=== PATIENT | female | born 1960 | race Caucasian/White ===

== ENCOUNTER 2017-08-15 12:31 | Outpatient (CLI) | payer OTHER | END 2017-08-15 12:32 | disposition home or self-care (01) | LOC: BICMAMMO 12:31 | PROVIDERS: ATTEND Radiology Diagnostic Radiology | DX: Z12.31 Encounter for screening mammogram for malignant neoplasm of breast (principal); Z80.3 Family history of malignant neoplasm of breast | CPT/HCPCS: G0279 ==

== ENCOUNTER 2019-01-22 19:30 | Outpatient (CLI) | payer OTHER | END 2019-01-22 19:31 | disposition home or self-care (01) | LOC: SLEEPLAB 19:30 | PROVIDERS: ATTEND Family Medicine | DX: G47.33 Obstructive sleep apnea (adult) (pediatric) (principal); R06.83 Snoring; R09.89 Other specified symptoms and signs involving the circulatory and respiratory systems; R53.83 Other fatigue; R40.0 Somnolence; E66.09 Other obesity due to excess calories; Z68.42 Body mass index [BMI] 45.0-49.9, adult | CPT/HCPCS: 95811 ==

== ENCOUNTER 2019-02-24 16:04 | Emergency (ER) | payer OTHER ==
[2019-02-24] MEDS ORDERED: diphenhydrAMINE 50 MG CAP ONE (17:55)
[2019-02-24] MEDS ORDERED: hydrOXYzine 25 MG TAB ONE (18:09)
[2019-02-24 18:27] LABS: #Lymphocytes 1.3 thou/uL (1.20-3.40); #Monocytes 0.4 thou/uL (0.11-0.59); #Neutrophils 6.4 thou/uL (1.40-6.50); %Basophils 0.1 % (0.0-1.0); %Eosinophils 0.2 % (0.0-10.0); %Lymphocytes 15.9 % (21.0-51.0); %Monocytes 5.2 % (0.0-10.0); %Neutrophils 78.6 % (42.0-75.0); Hemoglobin 13.6 g/dL (12.0-16.0); Mean Corpuscular HGB CONC 33.9 g/dL (32.0-36.0); Mean Corpuscular Hemoglobin 31.2 pg (27.0-31.0); Mean Corpuscular Volume 91.9 fL (78.0-98.0); Mean Platelet Volume 7.3 fL (7.4-10.4); Platelet Count 242 thou/uL (130-400); RBC Distribution Width 13.1 % (11.5-14.5); Red Blood Cell (RBC) Count 4.37 mill/uL (4.20-5.40); White Blood Cell (WBC) Count 8.2 thou/uL (4.8-10.8)
[2019-02-24] MEDS ORDERED: Acetaminophen 325 MG TAB ONE (18:47)
[2019-02-24 18:51] LABS: ALT (SGPT) 21 U/L (8-55); AST (SGOT) 16 U/L (5-34); Albumin 4.5 g/dL (3.5-5.0); Alkaline Phosphatase 99 U/L (40-150); Anion Gap 12 mmol/L (10-20); BUN (Urea Nitrogen) 24 mg/dL (9.8-20.1); Bilirubin, Total 1.5 mg/dL (0.2-1.2); Calc. Creatinine Clearance 0 mL/min (70-130); Calcium 9.6 mg/dL (7.8-10.44); Carbon Dioxide 24 mmol/L (22-29); Chloride 104 mmol/L (98-107); Estimated GFR-MDRD 49; Globulin 2.8 g/dL (2.4-3.5); Glucose 122 mg/dL (70-105); Potassium 3.8 mmol/L (3.5-5.1); Protein, Total 7.3 g/dL (6.0-8.3); Sodium 136 mmol/L (136-145)
[2019-02-24 19:06] LABS: Bilirubin Negative (Negative); Blood, Urine Negative (Negative); Clarity TURBID (Clear); Glucose, Urine (Dipstick) Negative (Negative); Leukocyte Negative (Negative); Nitrite Negative (Negative); Protein, Urine (Dipstick) Negative (Neg-Trace); Specific Gravity, Urine 1.029 (1.002-1.036)
[2019-02-24] MEDS ORDERED: Famotidine 20 MG TAB ONE (20:23)
== END 2019-02-24 21:07 | disposition home or self-care (01) ==
LOC: ERS 16:04
DX: L50.9 Urticaria, unspecified (principal); I25.10 Atherosclerotic heart disease of native coronary artery without angina pectoris; E78.5 Hyperlipidemia, unspecified; I10 Essential (primary) hypertension; J45.909 Unspecified asthma, uncomplicated; F41.9 Anxiety disorder, unspecified; Z79.899 Other long term (current) drug therapy
CPT/HCPCS: 36415; 80053; 81003; 85025; 99283; Q0153

== ENCOUNTER 2019-07-09 14:18 | Outpatient (CLI) | payer OTHER ==
--- NOTE | 2019-07-09 15:02 | MMO ---
Bilateral MAMMO Bilat Screen [facility]. CLINICAL HISTORY: Patient is 58 years old and is seen for screening. The patient has the following family history of breast cancer: mother, in 1998 and great aunt, maternal. The patient has no personal history of cancer. The patient has a history of left Ultrasound Guided Core Biopsy - benign. VIEWS: The views performed were: bilateral craniocaudal with tomosynthesis and bilateral mediolateral oblique with tomosynthesis. FILMS COMPARED: The present examination has been compared to prior imaging studies performed at [facility] on 07/13/2016, 07/30/2017 and 08/15/2017. This study has been interpreted with the assistance of computer-aided detection. MAMMOGRAM FINDINGS: There are scattered fibroglandular densities. There are no suspicious masses, suspicious calcifications, or new areas of architectural distortion. IMPRESSION: THERE IS NO MAMMOGRAPHIC EVIDENCE OF MALIGNANCY. A ROUTINE FOLLOW-UP MAMMOGRAM IN 1 YEAR IS RECOMMENDED. THE RESULTS OF THIS EXAM WERE SENT TO THE PATIENT. ACR BI-RADS Category 1 - Negative MAMMOGRAPHY NOTE: 1. A negative mammogram report should not delay a biopsy if a dominant of clinically suspicious mass is present. 2. Approximately 10% to 15% of breast cancers are not detected by mammography. 3. Adenosis and dense breasts may obscure an underlying neoplasm. Reported by: KELVIN COMER MD Electonically Signed: [id number]
== END 2019-07-09 14:19 | disposition home or self-care (01) ==
LOC: BICMAMMO 14:18
PROVIDERS: ATTEND Family Medicine
DX: Z12.31 Encounter for screening mammogram for malignant neoplasm of breast (principal); Z91.89 Other specified personal risk factors, not elsewhere classified; Z80.3 Family history of malignant neoplasm of breast
CPT/HCPCS: 77063; 77067

== ENCOUNTER 2019-07-28 07:36 | Day surgery (SDC) | payer OTHER ==
[2019-07-27 11:38] VITALS: BMI 44.9
[2019-07-28] MEDS ORDERED: PROPOFOL 200 MG/20 ML VIAL ONE (09:43)
--- NOTE | 2019-07-28 12:22 | OP ---
DATE OF PROCEDURE: 07/28/2019 PREPROCEDURE DIAGNOSIS: Prior history of large sessile serrated adenoma of the transverse colon in 2016. POSTPROCEDURE DIAGNOSES: 1. Tortuous sigmoid colon. 2. Otherwise normal colonoscopy. 3. Scar in the transverse colon with no residual polyp. RECOMMENDATIONS: Repeat colonoscopy in 5 years. ANESTHESIA: TIVA. PROCEDURE IN DETAIL: After the patient was informed of the risks, benefits, and possible complications of endoscopy including perforation, bleeding, reaction to medication, and aspiration, informed consent was obtained. The patient was brought to endoscopy suite, where she was sedated in gradual fashion. Once she was comfortable, a rectal exam was performed, which was normal. The endoscope was inserted into the anal canal through the colon to cecum, which was identified by the ileocecal valve and appendiceal orifice. The prep was good. The scope was slowly removed with good visualization of the mucosa. There were no mass lesions or AV malformations seen. There was a scar in the transverse colon, consistent with previous polypectomy. No residual polyp material was seen. The remainder of the colon was evaluated and found to be normal except for mild diverticulosis in the sigmoid colon. Retroflexed views in the rectum were normal. The scope was then returned to forward position and removed. The patient tolerated the procedure well. There were no complications. Job ID: [id number]
== END 2019-07-28 10:40 | disposition home or self-care (01) ==
LOC: SDC 07:36
PROVIDERS: ATTEND Internal Medicine Gastroenterology
PROC: 0DJD8ZZ Inspection of Lower Intestinal Tract, Via Natural or Artificial Opening Endoscopic (ICD-10-PCS; principal; 2019-07-28)
DX: Z12.11 Encounter for screening for malignant neoplasm of colon (principal); Q43.8 Other specified congenital malformations of intestine; E78.5 Hyperlipidemia, unspecified; E03.9 Hypothyroidism, unspecified; F32.9 Major depressive disorder, single episode, unspecified; Z88.2 Allergy status to sulfonamides; Z86.010 Personal history of colon polyps; Z79.899 Other long term (current) drug therapy
CPT/HCPCS: J2704

== ENCOUNTER 2019-07-30 00:37 | Emergency (ER) | payer OTHER ==
[2019-07-30] MEDS ORDERED: Lidocaine 1% w/Epinephrine 1:100K 20 ML VIAL ONE (01:29)
[2019-07-30] MEDS ORDERED: Adacel (T-DAP) 0.5 ML SYRINGE ONE (01:49)
== END 2019-07-30 02:11 | disposition home or self-care (01) ==
LOC: ERS 00:37
DX: S01.01XA Laceration without foreign body of scalp, initial encounter (principal); I25.10 Atherosclerotic heart disease of native coronary artery without angina pectoris; E78.5 Hyperlipidemia, unspecified; I10 Essential (primary) hypertension; J45.909 Unspecified asthma, uncomplicated; F41.9 Anxiety disorder, unspecified; Z79.899 Other long term (current) drug therapy; Z79.82 Long term (current) use of aspirin; Z23 Encounter for immunization; W17.89XA Other fall from one level to another, initial encounter
CPT/HCPCS: 12002; 90471; 90715

== ENCOUNTER 2019-08-27 14:20 | Outpatient (CLI) | payer OTHER | END 2019-08-27 14:21 | disposition home or self-care (01) | LOC: DTY/OP 14:20 | PROVIDERS: ATTEND Surgery | DX: E66.01 Morbid (severe) obesity due to excess calories (principal) | CPT/HCPCS: 97802 ==

== ENCOUNTER 2019-09-28 10:58 | Outpatient (CLI) | payer OTHER | END 2019-09-28 10:59 | disposition home or self-care (01) | LOC: DTY/OP 10:58 | PROVIDERS: ATTEND Surgery | DX: E66.01 Morbid (severe) obesity due to excess calories (principal) | CPT/HCPCS: 97802 ==

== ENCOUNTER 2019-10-28 10:04 | Outpatient (CLI) | payer OTHER | END 2019-10-28 10:05 | disposition home or self-care (01) | LOC: DTY/OP 10:04 | PROVIDERS: ATTEND Surgery | DX: E66.01 Morbid (severe) obesity due to excess calories (principal) | CPT/HCPCS: 97802 ==

== ENCOUNTER 2019-11-25 10:09 | Outpatient (CLI) | payer OTHER | END 2019-11-25 10:10 | disposition home or self-care (01) | LOC: DTY/OP 10:09 | PROVIDERS: ATTEND Surgery | DX: E66.01 Morbid (severe) obesity due to excess calories (principal) | CPT/HCPCS: 97802 ==

== ENCOUNTER 2020-07-08 06:44 | Outpatient (CLI) | payer OTHER ==
--- NOTE | 2020-07-08 11:44 | RAD ---
EXAM: Two views chest PROVIDED CLINICAL HISTORY: Preoperative evaluation COMPARISON: 05/31/2008 FINDINGS: Cardiac silhouette and pulmonary vasculature are within normal limits. The lungs are clear. The osse ous structures have a normal appearance. IMPRESSION: No acute cardiopulmonary process.
[2020-07-08 12:46] LABS: #Eosinphils 0.1 10x3/uL (0.0-0.5); #Monocytes 0.4 10x3/uL (0.0-1.1); #Neutrophils 3.9 10x3/uL (1.5-8.4); %Basophils 0.3 % (0.0-2.0); %Eosinophils 1.1 % (0.0-6.0); %Lymphocytes 30.8 % (18.0-47.0); %Monocytes 6.8 % (0.0-10.0); %Neutrophils 60.7 % (40.0-75.0); Hemoglobin 13.4 g/dL (12.0-16.0); Mean Corpuscular HGB CONC 33.7 G/DL (32.0-36.0); Mean Corpuscular Hemoglobin 29.8 PG (27.0-33.0); Mean Corpuscular Volume 88.4 fl (80.0-100.0); Mean Platelet Volume 10.1 fl (7.4-10.4); Platelet Count 254 10x3/uL (130-400); RBC Distribution Width 12.9 % (11.5-14.5); White Blood Cell (WBC) Count 6.4 10x3/uL (4.5-11.0)
[2020-07-08 13:06] LABS: ALT (SGPT) 45 U/L (8-55); AST (SGOT) 30 U/L (5-34); Albumin 4.6 g/dL (3.5-5.0); Alkaline Phosphatase 90 U/L (40-110); Anion Gap 20 mmol/L (10-20); BUN (Urea Nitrogen) 23 mg/dL (9.8-20.1); Bilirubin, Total 0.7 mg/dL (0.2-1.2); Calc. Creatinine Clearance 0 mL/min (70-130); Calcium 9.8 mg/dL (7.8-10.44); Carbon Dioxide 20 mmol/L (22-29); Chloride 105 mmol/L (98-107); Estimated GFR-MDRD 67; Globulin 2.7 g/dL (2.4-3.5); Glucose 88 mg/dL (70-105); Potassium 4.4 mmol/L (3.5-5.1); Protein, Total 7.3 g/dL (6.0-8.3); Sodium 141 mmol/L (136-145)
[2020-07-08 16:43] LABS: Hemoglobin A1c 4.7 % (4.0-6.0)
[2020-07-08 17:49] LABS: SARS-CoV-2 MS2 Positive; SARS-CoV-2 N Gene Negative; SARS-CoV-2 S Gene Negative; SARS-CoV-2 by NAA Not Detected (NotDetected); SARS-CoV-2 orf1ab Negative
== END 2020-07-08 06:45 | disposition home or self-care (01) ==
LOC: LABBT 06:44
PROVIDERS: ATTEND Surgery
DX: Z01.818 Encounter for other preprocedural examination (principal); Z20.828 Contact with and (suspected) exposure to other viral communicable diseases; E66.01 Morbid (severe) obesity due to excess calories
CPT/HCPCS: 71046; 80053; 83036; 85025; 87635; 93005; 93010; U0003

== ENCOUNTER 2020-07-08 11:00 | Inpatient (IN) | payer OTHER ==
[2020-07-08 13:21] VITALS: BMI 47.5
[2020-07-13] MEDS ORDERED: Heparin 5,000 UNITS/ML VIAL ONE (06:16)
[2020-07-13] MEDS ORDERED: Fentanyl 100 MCG/2 ML VIAL ONE ×2 (06:24→09:17)
[2020-07-13] MEDS ORDERED: Midazolam HCl 2 mg/2 ml Vial ONE (06:24)
[2020-07-13] MEDS ORDERED: Lidocaine 1% w/Epinephrine 1:100K 20 ML VIAL ONE (07:52)
[2020-07-13] MEDS ORDERED: Bupivacaine 0.25% HCL 30 ML VIAL ONE (07:52)
[2020-07-13] MEDS ORDERED: Ketorolac Tromethamine 30 MG/ML VIAL ONE (08:23)
[2020-07-13] MEDS ORDERED: PROPOFOL 200 MG/20 ML VIAL ONE (08:23)
[2020-07-13] MEDS ORDERED: Glycopyrrolate 0.2 MG/ML 5 ML SYRINGE ONE (08:23)
[2020-07-13] MEDS ORDERED: Lidocaine 1% PF 5 ML VIAL ONE (08:23)
[2020-07-13] MEDS ORDERED: Rocuronium Bromide 10 MG/ML (10ML VIAL) ONE (08:23)
[2020-07-13] MEDS ORDERED: Ondansetron PF 4 MG/2 ML Vial ONE (08:23)
[2020-07-13] MEDS ORDERED: Dexamethasone 20 MG/5 ML VIAL ONE (08:23)
[2020-07-13] MEDS ORDERED: diphenhydrAMINE 50 MG/ML VIAL IVP PRN ×2 (08:58→09:05)
[2020-07-13] MEDS ORDERED: hydrALAZINE 20 MG/ML VIAL SLOW IVP PRN (08:58)
[2020-07-13] MEDS ORDERED: Dextrose 5% in Water 1,000 ML IV PRN (08:58)
[2020-07-13] MEDS ORDERED: Dextrose 50% Abboject 50 ML SYRINGE SLOW IVP PRN (08:58)
[2020-07-13] MEDS ORDERED: Hydrocodone-Acetamin 15 ML UDCUP PO PRN (08:58)
[2020-07-13] MEDS ORDERED: Promethazine HCl 25 MG/ML VIAL IM PRN ×3 (08:58→09:05)
[2020-07-13] MEDS ORDERED: Ondansetron PF 4 MG/2 ML Vial IVP PRN ×2 (08:58→09:05)
[2020-07-13] MEDS ORDERED: Ondansetron HCl/PF 4 MG/2 ML Vial IVP PRN (09:04)
[2020-07-13] MEDS ORDERED: Promethazine HCl 25 MG/ML VIAL SLOW IVP PRN (09:04)
[2020-07-13] MEDS ORDERED: diphenhydrAMINE 50 MG/ML VIAL IM PRN (09:05)
[2020-07-13] MEDS ORDERED: Naloxone HCl 0.4 mg/ml Vial IV PRN (09:05)
[2020-07-13] MEDS ORDERED: diphenhydrAMINE 25 MG CAP PO PRN (09:05)
[2020-07-13] MEDS ORDERED: fentaNYL Citrate/PF 2,000 MCG in Sodium Chloride 0.9% 60 ML IV PRN (09:05)
[2020-07-13] MEDS ORDERED: Zolpidem Tartrate 5 MG TAB PO PRN (09:05)
[2020-07-13] MEDS ORDERED: Communication Order-Pharmacy FS SCH (09:15)
[2020-07-13] MEDS ORDERED: Promethazine HCl 25 MG/ML VIAL ONE (09:30)
--- NOTE | 2020-07-13 09:30 | OP ---
DATE OF PROCEDURE: 07/13/2020 PREOPERATIVE DIAGNOSIS: Morbid obesity. PROCEDURE PERFORMED: Laparoscopic sleeve gastrectomy with intraoperative esophagogastroscopy. INDICATIONS: The patient is a 59-year-old female. She had a previous lap band that had to be removed. She is morbidly obese. She has attempted multiple weight loss programs without success. FINDINGS: A 38-Ukrainian bougie was used. There were quite a bit of adhesions in the upper stomach from the previous lap band. DESCRIPTION OF PROCEDURE: After informed consent was obtained, the patient was taken to the operating room and given general endotracheal anesthesia. She was placed in supine position and her abdomen was prepped and draped in usual fashion. Local anesthesia was infiltrated subcutaneously and deep, and a 12 mm incision was performed approximately 8 inches above the xiphoid slight to the left. Veress needle was inserted. Drop test performed. Pneumoperitoneum was created to a volume of 2 L of carbon dioxide. Utilizing a bladeless 12 mm trocar and 0-degree laparoscope, direct visual entry into the abdominal cavity was performed. Pneumoperitoneum was created to a pressure of 15 mmHg. The patient was placed in steep reverse Trendelenburg position. Viet liver retractor was inserted. Left lobe of the liver retracted superiorly. There were quite a bit of adhesions there. The pylorus was identified and a 12-mm port placed on the right beneath it and two 12's were placed left subcostal. The adhesions were taken down sharply with Metzenbaum scissors to free up the anterior abdominal wall and liver. Then, the liver retractor was re-positioned for better exposure. The omentum was taken off the greater curvature 5 cm from the pylorus utilizing a LigaSure. Short gastrics divided with LigaSure. Left crura defined with LigaSure. There was a hiatal hernia, so the crura was completely defined circumferentially and the hiatal hernia reduced. A 38-Ukrainian bougie inserted, directed into the antrum. The linear 60 mm green load staple was used to divide the antrum to the bougie, gold load along the bougie, and a series of blues to the angle of His. On the staple loads, staple reinforcements from [employer] were used. Intraoperative endoscopy was then performed. The video endoscope was inserted under direct vision, advanced into the sleeve. The staple line inspected. There was no bleeding. Staple line then tested by inflating the new stomach with pressurized air under water. There was no air leak. The stomach decompressed. Scope removed. The remnant stomach removed from the abdomen through the left lateral port site. The fascia closed with 0 Vicryl suture in a GraNee needle. Trocars and retractors removed. The skin closed with interrupted 4-0 Rapide. Dermabond applied. The patient tolerated the procedure well, transferred to Recovery in good condition. Sponge and needle count verified correct x2. Job ID: [id number]
[2020-07-13] MEDS ORDERED: Sodium Chloride 0.9% (PF) 10 ML VIAL FS PRN (09:45)
[2020-07-13] MEDS ORDERED: hydrALAZINE 20 MG/ML VIAL ONE (10:19)
[2020-07-13] MEDS: D5 1/2 NS w/20 mEq KCL 1,000 ML IV SCH ×3 (13:49→21:22)
[2020-07-13] MEDS: Ketorolac Tromethamine 30 MG/ML VIAL IVP SCH ×2 (13:49→18:50)
[2020-07-13] MEDS: CEFAZOLIN 2 GM in Premix Bag 1 BAG IVPB SCH ×2 (15:12→21:20)
[2020-07-13] MEDS: Pantoprazole 40 MG VIAL IVP SCH (15:14)
[2020-07-14] MEDS: Ketorolac Tromethamine 30 MG/ML VIAL IVP SCH ×5 (00:07→23:28)
[2020-07-14 05:16] LABS: #Lymphocytes 1.9 thou/uL (1.20-3.40); #Monocytes 0.7 thou/uL (0.11-0.59); #Neutrophils 7.3 thou/uL (1.40-6.50); %Basophils 0.1 % (0.0-1.0); %Eosinophils 0.2 % (0.0-10.0); %Lymphocytes 19.1 % (21.0-51.0); %Monocytes 6.7 % (0.0-10.0); %Neutrophils 73.9 % (42.0-75.0); Hemoglobin 12.4 g/dL (12.0-16.0); Mean Corpuscular Hemoglobin 31.3 pg (27.0-31.0); Mean Corpuscular Volume 89.5 fL (78.0-98.0); Mean Platelet Volume 7.1 fL (7.4-10.4); Platelet Count 221 thou/uL (130-400); RBC Distribution Width 12.7 % (11.5-14.5); Red Blood Cell (RBC) Count 3.98 mill/uL (4.20-5.40); White Blood Cell (WBC) Count 9.9 thou/uL (4.8-10.8)
[2020-07-14 05:35] LABS: Anion Gap 12 mmol/L (10-20); BUN (Urea Nitrogen) 9 mg/dL (9.8-20.1); Calc. Creatinine Clearance 135 mL/min (70-130); Calcium 9.3 mg/dL (7.8-10.44); Carbon Dioxide 28 mmol/L (22-29); Chloride 107 mmol/L (98-107); Estimated GFR-MDRD 66; Glucose 143 mg/dL (70-105); Potassium 4.9 mmol/L (3.5-5.1); Sodium 142 mmol/L (136-145)
[2020-07-14] MEDS: D5 1/2 NS w/20 mEq KCL 1,000 ML IV SCH ×3 (05:54→23:32)
[2020-07-14] MEDS ORDERED: Enoxaparin Sodium 40 MG/0.4 ML SYRINGE SC SCH (06:00)
--- NOTE | 2020-07-14 08:22 | PRG ---
DATE OF SERVICE: 07/14/2020 SUBJECTIVE: The patient is struggling to drink much. She is able to take a little bit, but she says it really cause a lot of discomfort when she tries to drink. No vomiting. OBJECTIVE: VITAL SIGNS: Her temperature is 98.7, pulse 67, blood pressure 126/80. GENERAL: She looks okay. Incisions are healing well. There is no evidence of infection. LABORATORY DATA: White count is 9, H and H of 12 and 35, and platelet count 221. Electrolytes are fine. ASSESSMENT: Postop dysphagia from extensive adhesions. PLAN: . Job ID: [id number]
[2020-07-14] MEDS: Pantoprazole 40 MG VIAL IVP SCH (08:46)
[2020-07-14] MEDS: Hydrocodone-Acetamin 15 ML UDCUP PO PRN (18:07)
[2020-07-15] MEDS: Ketorolac Tromethamine 30 MG/ML VIAL IVP SCH (05:49)
[2020-07-15] MEDS: D5 1/2 NS w/20 mEq KCL 1,000 ML IV SCH (05:54)
[2020-07-15 08:33] VITALS: BP 125/81; TEMP 98
[2020-07-15] MEDS ORDERED: Enoxaparin Sodium 40 MG/0.4 ML SYRINGE SC SCH (09:00)
[2020-07-15] MEDS: Hydrocodone-Acetamin 15 ML UDCUP PO PRN (09:34)
[2020-07-15] MEDS: Pantoprazole 40 MG VIAL IVP SCH (09:34)
--- NOTE | 2020-07-18 05:45 | PQF ---
CLINICAL DOCUMENTATION CLARIFICATION FORM: Dear : Noel Styles Date / Time: 07/18/20 05:44 Please exercise your independent, professional judgment in responding to the clarification form. Clinical indicators are provided on the bottom of this form for your review Please check appropriate box(es): [ ] Dysphagia as a complication of recent lap sleeve gastrectomy [ ] Dysphagia not a complication of recent lap sleeve gastrectomy [ ] Other diagnosis [ ] Unable to determine Physician Signature: Date/Time: For continuity of documentation, please document condition throughout progress notes and discharge summary. Thank You. To be completed by CDI/Coding staff for physician review: Present Clinical Indicators - Signs / Symptoms / Labs Results and Location in Medical Record [x] Post-op dysphagia from extensive adhesions PN 07/14 [x] The patient is struggling to drink much PN 07/14 [x] She is able to take a little bit, but she says it really cause a lot of discomfort PN 07/14 [x] s/p lap sleeve gastrectomy OP Note 07/13 Present Risk Factors Results and Location in Medical Record [x] Morbid obesity OP Note 07/13 [x] KATERINE HP 07/13 [x] s/p lap sleeve gastrectomy OP Note 07/13 Present [x] Zofran 4mg IV NOV 17 [x] IVF 1000ml IV NOV 17 CDS/Able Seaman Signature: Truman Amaya Phone #: [phone] Date/Time: 07/18/2020 05:44 This is a permanent part of the Medical Record [facility]
--- NOTE | 2020-07-18 06:48 | DIS ---
DATE OF ADMISSION: 07/13/2020 DATE OF DISCHARGE: 07/15/2020 DISCHARGE DIAGNOSIS: Morbid obesity. PROCEDURES DURING ADMISSION: Laparoscopic sleeve gastrectomy, intraoperative esophagogastroscopy. HOSPITAL COURSE: The patient was admitted, taken to the operating room, where she underwent a sleeve gastrectomy. Postoperatively, she had quite a bit of dysphagia. She had trouble taking enough p.o. to go home. She was kept another night. She is now doing much better. She is discharged home on hydrocodone and Zofran. She will follow up with me in 2 weeks. Job ID: [id number]
== END 2020-07-15 13:29 | disposition home or self-care (01) | DRG 621 ==
LOC: SURG A 07-13 05:55
PROVIDERS: ADMIT Surgery; ATTEND Surgery
PROC: 0DB64Z3 Excision of Stomach, Percutaneous Endoscopic Approach, Vertical (ICD-10-PCS; principal; 2020-07-13)
PROC: 0DJ08ZZ Inspection of Upper Intestinal Tract, Via Natural or Artificial Opening Endoscopic (ICD-10-PCS; 2020-07-13)
DX: E66.01 Morbid (severe) obesity due to excess calories (principal); E03.9 Hypothyroidism, unspecified; F32.9 Major depressive disorder, single episode, unspecified; E78.5 Hyperlipidemia, unspecified; G47.33 Obstructive sleep apnea (adult) (pediatric); R13.10 Dysphagia, unspecified; K44.9 Diaphragmatic hernia without obstruction or gangrene; Z90.710 Acquired absence of both cervix and uterus; Z90.49 Acquired absence of other specified parts of digestive tract; Z79.82 Long term (current) use of aspirin; Z79.51 Long term (current) use of inhaled steroids; Z79.899 Other long term (current) drug therapy; Z68.42 Body mass index [BMI] 45.0-49.9, adult
CPT/HCPCS: 36415; 80048; 85025; 88307; 88312; C9113; J0360; J0690; J1100; J1644; J1650; J1885; J2250; J2405; J2550; J2704; J3010; J3480; S0020

== ENCOUNTER 2021-11-02 11:04 | Outpatient (CLI) | payer OTHER | END 2021-11-02 11:05 | disposition home or self-care (01) | LOC: BICMAMMO 11:04 | PROVIDERS: ATTEND Family Medicine | DX: Z12.31 Encounter for screening mammogram for malignant neoplasm of breast (principal); Z80.3 Family history of malignant neoplasm of breast; Z91.89 Other specified personal risk factors, not elsewhere classified | CPT/HCPCS: 77063; 77067 ==

== ENCOUNTER 2023-01-04 11:49 | Outpatient (CLI) | payer OTHER | END 2023-01-04 11:50 | disposition home or self-care (01) | LOC: BICMAMMO 11:49 | PROVIDERS: ATTEND Family Medicine | DX: Z12.31 Encounter for screening mammogram for malignant neoplasm of breast (principal); Z91.89 Other specified personal risk factors, not elsewhere classified; Z80.3 Family history of malignant neoplasm of breast | CPT/HCPCS: 77063; 77067 ==

== ENCOUNTER 2024-01-29 10:29 | Outpatient (CLI) | payer OTHER | END 2024-01-29 10:30 | disposition home or self-care (01) | LOC: BICMAMMO 10:29 | PROVIDERS: ATTEND Family Medicine | DX: Z12.31 Encounter for screening mammogram for malignant neoplasm of breast (principal); Z13.820 Encounter for screening for osteoporosis; M85.88 Other specified disorders of bone density and structure, other site; Z91.89 Other specified personal risk factors, not elsewhere classified; Z80.3 Family history of malignant neoplasm of breast; Z78.0 Asymptomatic menopausal state | CPT/HCPCS: 77063; 77067; 77080 ==

== ENCOUNTER 2025-04-29 08:37 | Outpatient (CLI) | payer OTHER | END 2025-04-29 08:38 | disposition home or self-care (01) | LOC: MRI 08:37 | PROVIDERS: ATTEND Orthopaedic Surgery | DX: M47.26 Other spondylosis with radiculopathy, lumbar region (principal); M51.16 Intervertebral disc disorders with radiculopathy, lumbar region; M47.27 Other spondylosis with radiculopathy, lumbosacral region; M48.061 Spinal stenosis, lumbar region without neurogenic claudication | CPT/HCPCS: 72148 ==